=== PATIENT | female | born 2000 | race Two or more races ===

== ENCOUNTER 2023-08-27 21:35 | Emergency (ER) | payer SELFPAY ==
[2023-08-27 21:46] VITALS: BP 107/55; PULSE 84; RESP 18; TEMP 99; BMI 33.5
[2023-08-27 22:16] LABS: THROAT:GRP A STREP NOT DETECTED (NOTDETECTED)
== END 2023-08-27 23:17 | disposition home or self-care (01) ==
LOC: JER 21:35
DX: J02.9 Acute pharyngitis, unspecified (principal); B34.9 Viral infection, unspecified; R52 Pain, unspecified; R68.83 Chills (without fever); Z20.822 Contact with and (suspected) exposure to COVID-19
CPT/HCPCS: 0241U-QW; 87651; 99283-25